=== PATIENT | female | born 1945 | race African-American/Black ===

== ENCOUNTER 2018-02-26 22:09 | Emergency (ER) | payer MEDICARE, OTHER ==
[2018-02-26 22:33] LABS: BASOPHILS % (AUTO) 0.7 %; EOSINOPHILS # (AUTO) 0.1 10^3/uL (0.0-0.7); EOSINOPHILS % (AUTO) 2.8 %; HGB - HEMOGLOBIN 11.9 g/dL (12.0-16.0); LYMPHOCYTES # (AUTO) 2.1 10^3/uL (1.5-3.5); LYMPHOCYTES % (AUTO) 39.4 %; MEAN CORPUSCULAR HEMOGLOBIN 30.8 pg (27.0-31.0); MEAN CORPUSCULAR HGB CONC 33.9 g/dL (32.0-36.0); MEAN CORPUSCULAR VOLUME 90.9 fL (81.0-99.0); MEAN PLATELET VOLUME 7.8 fL (7.9-10.8); MONOCYTES # (AUTO) 0.6 10^3/uL (0.0-1.0); MONOCYTES % (AUTO) 10.5 %; NEUTROPHILS # (AUTO) 2.5 10^3/uL (1.5-6.6); NEUTROPHILS % (AUTO) 46.6 %; PLT - PLATELET COUNT 321 10^3/uL (130-450); RED BLOOD COUNT 3.88 10^6/uL (4.20-5.40); RED CELL DISTRIBUTION WIDTH 13.4 % (12.0-15.0); WHITE BLOOD COUNT 5.4 x10^3/uL (4.8-10.8)
[2018-02-26 22:49] LABS: ALBUMIN 3.9 g/dL (3.2-5.5); BILIRUBIN,TOTAL 0.9 mg/dL (0.2-1.0); CALCIUM 9.3 mg/dL (8.5-10.3); CREATININE 0.9 mg/dL (0.4-1.0); TOTAL PROTEIN 7.7 g/dL (6.7-8.2)
--- NOTE | 2018-02-26 22:58 | ED Physician Documentation ---
PD HPI CHEST PAIN - Stated complaint Stated Complaint: CP/BLURRY VISION,L ARM TINGLING - Chief complaint Chief Complaint: Cardiac - History obtained from History obtained from: Patient, Family - History of Present Illness Timing - onset: How many hours ago (2) Timing - onset during: Rest Timing - details: Abrupt onset, Intermittant Quality: Pressure Location: Left chest Radiation: Left upper extremity Associated symptoms: No: Shortness of air, Diaphoresis, Nausea Similar symptoms before: Has not had sx before Recently seen: Not recently seen - Additional information Additional information: patient is a 72 year old female with a history of diabetes and htn who is presenting to the emergency department for chest pain and numbness and tingling down her left arm. patient states that her symptoms started this evening when she went to go to bed. 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 Patient states that she also has worsening vision. patient states that it feels like her eyes are dry and vision is a bit blurry. patient states that she always has floaters and poor vision but her symptoms are worse than usual. patient denies any exertional component to her chest pain and states that she walks every day without difficulty. Review of Systems Constitutional: denies: Fever, Chills Eyes: reports: Decreased vision. denies: Photophobia Nose: denies: Rhinorrhea / runny nose, Congestion Throat: denies: Sore throat Cardiac: reports: Chest pain / pressure. denies: Palpitations, Pedal edema, Calf pain Respiratory: denies: Dyspnea, Cough GI: denies: Nausea, Vomiting Musculoskeletal: reports: Back pain, Extremity pain Neurologic: reports: Numbness. 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 Psych: None Musculoskeletal: Osteoarthritis - Past Surgical History Past Surgical History: Yes Ortho: Knee replacement - Allergies Allergies/Adverse Reactions: Allergies Allergy/AdvReac Type Severity Reaction Status Date / Time No Known Drug Allergies Allergy Verified 02/26/18 22:22 - Social History Does the pt smoke?: No Smoking Status: Never smoker Does the pt drink ETOH?: Yes Does the pt have substance abuse?: Yes Substance Use and Type: Marijuana - Immunizations Immunizations are current?: No Immunizations: TDAP >10years/unknown - POLST Patient has POLST: No PD ED PE NORMAL - Vitals Vital signs reviewed: Yes - General General: Alert and oriented X 3, No acute distress, Well developed/nourished - HEENT HEENT: Atraumatic, PERRL, Moist mucous membranes - Neck Neck: No bony TTP, No JVD - Cardiac Cardiac: RRR, No murmur - Respiratory Respiratory: No respiratory distress, Clear bilaterally - Abdomen Abdomen: Soft, Non tender, Non distended - Derm Derm: Normal color, Warm and dry, No rash - Extremities Extremities: No deformity - Neuro Neuro: Alert and oriented X 3, No motor deficit, Normal speech Eye Opening: Spontaneous Motor: Obeys Commands Verbal: Oriented GCS Score: 15 PD ED PE EXPANDED - Neck Neck: Soft tissue TTP (tenderness to palpation of left paraspinal muscles and trapezious muscles) Results - Vitals Vitals: Vital Signs - 24 hr 02/26/18 02/26/18 02/26/18 22:16 22:39 23:45 Temperature 36.4 C L Heart Rate 71 63 66 Respiratory 16 17 18 Rate Blood Pressure 137/68 H 122/61 113/80 Blood Pressure 128/59 L [Left] Blood Pressure 137/68 H [Right] O2 Saturation 98 98 97 02/27/18 00:56 Temperature Heart Rate 62 Respiratory 19 Rate Blood Pressure 113/70 Blood Pressure [Left] Blood Pressure [Right] O2 Saturation 96 Oxygen O2 Source Room air - EKG (time done) 0106 Rate: Rate (enter#) (64) Rhythm: NSR Gorm[place]: Normal Intervals: Normal MI QRS: Normal Ischemia: Normal ST segments Compare to prior EKG: Unchanged from prior EKG - Labs Labs: Laboratory Tests 02/26/18 02/26/18 02/26/18 22:30 22:30 22:30 WBC 5.4 RBC 3.88 L Hgb 11.9 L Hct 35.2 L MCV 90.9 MCH 30.8 MCHC 33.9 RDW 13.4 Plt Count 321 MPV 7.8 L Neut # (Auto) 2.5 Lymph # (Auto) 2.1 Daniels # (Auto) 0.6 Eos # (Auto) 0.1 Baso # (Auto) 0.0 Absolute Nucleated RBC 0.00 Nucleated RBC % 0.0 Sodium 135 Potassium 3.6 Chloride 103 Carbon Dioxide 24 Anion Gap 8.0 BUN 23 H Creatinine 0.9 Estimated GFR (MDRD) 75 L Glucose 160 H Calcium 9.3 Total Bilirubin 0.9 AST 23 ALT 16 Alkaline Phosphatase 117 Troponin I < 0.04 Total Protein 7.7 Albumin 3.9 Globulin 3.8 Albumin/Globulin Ratio 1.0 Lipase 62 H 02/27/18 01:10 WBC RBC Hgb Hct MCV MCH MCHC RDW Plt Count MPV Neut # (Auto) Lymph # (Auto) Daniels # (Auto) Eos # (Auto) Baso # (Auto) Absolute Nucleated RBC Nucleated RBC % Sodium Potassium Chloride Carbon Dioxide Anion Gap BUN Creatinine Estimated GFR (MDRD) Glucose Calcium Total Bilirubin AST ALT Alkaline Phosphatase Troponin I < 0.04 Total Protein Albumin Globulin Albumin/Globulin Ratio Lipase - Rads (name of study) chest x-ray Radiology: Final report received (no acute abnormality) PD MEDICAL DECISION MAKING - ED course Complexity details: reviewed old records, reviewed results, re-evaluated patient , considered differential, d/w patient, d/w family ED course: patient was seen and examined at bedside. ekg was performed and was normal sinus. patient was well appearing in no distress. iv access was gained and labs were drawn. original troponin was negative. patient was observed in the emergency department for three hours with no chest pain. patient had some tingling in her left hand that were more likely to radiculopathy and not cardiac in nature. patient's blurry vision was not suspicious for rentinal artery or vein occlusion or a high pressure state. Patient's repeat troponin and ekg were within normal limits. Patient had a heart score of three. Patient required no further inpatient work up at this time and was stable for discharge with outpatient follow up. - Sepsis Event Vital Signs: Vital Signs - 24 hr 02/26/18 02/26/18 02/26/18 22:16 22:39 23:45 Temperature 36.4 C L Heart Rate 71 63 66 Respiratory 16 17 18 Rate Blood Pressure 137/68 H 122/61 113/80 Blood Pressure 128/59 L [Left] Blood Pressure 137/68 H [Right] O2 Saturation 98 98 97 02/27/18 00:56 Temperature Heart Rate 62 Respiratory 19 Rate Blood Pressure 113/70 Blood Pressure [Left] Blood Pressure [Right] O2 Saturation 96 Oxygen O2 Source Room air Departure - Departure Disposition: 01 Home, Self Care Clinical Impression: Atypical chest pain Condition: Good Instructions: ED Chest Pain Atypical Unkn Cause Follow-Up: Heather Rick MD [Primary Care Provider] - Within 3 Days Comments: Your diagnostics today were within normal limits. there were no significant abnormalities on you ekg, chest x-ray or blood work. This indicates that it is less likely cardiac in nature but this is only a snapshot in time. It is important that you follow up with your doctor for re-evaluation and stress test and echocardiogram. You should also move up your appointment with your eye doctor. You should return for new, worsening or uncontrollable symptoms.
--- NOTE | 2018-02-26 23:39 | XRAY Report ---
Reason: chest pain Procedure Date: 02/26/2018 Accession Number: [id number] / [id number] Procedure: XR - Chest 1 View X-Ray CPT Code: 15902 FULL RESULT: EXAM: CHEST RADIOGRAPHY EXAM DATE: 02/26/2018 11:18 PM. CLINICAL HISTORY: Chest pain COMPARISON: None. TECHNIQUE: 1 view. FINDINGS: Lungs/Pleura: No focal opacities evident. No pleural effusion. No pneumothorax. Mediastinum: Within exam limitations, the cardiomediastinal contour is normal. Other: None. IMPRESSION: Normal single view chest. RADIA
[2018-02-27 02:02] VITALS: BP 118/54
== END 2018-02-27 02:10 | disposition home or self-care (01) ==
LOC: ED 22:09
DX: I10 Essential (primary) hypertension (principal); R07.89 Other chest pain; R20.0 Anesthesia of skin; H53.8 Other visual disturbances
CPT/HCPCS: 36415; 71045; 80053; 83690; 84484; 85025; 93005; 99284

== ENCOUNTER 2021-03-06 15:38 | Emergency (ER) | payer MEDICARE ==
[2021-03-06 15:50] VITALS: BP 148/54
[2021-03-06] MEDS ORDERED: TETANUS/DIPHTHERIA/PERTUSSIS 0.5 ML SYRINGE IM ONE (16:05)
--- NOTE | 2021-03-06 16:29 | ED Physician Documentation ---
History of Present Illness - Stated complaint Stated Complaint: FALL,HEAD LAC - Chief complaint Chief Complaint: Laceration - History obtained from History obtained from: Patient - History of Present Illness Timing: Today Pain level max: 0 Pain level now: 0 - Additonal information Additional information: Patient is a 75-year-old female who presents to the emergency department after a ground-level fall while hiking today, she tripped over a tree root and hit the ground. Causing a laceration to the forehead. No pain. No loss of consciousness. No head, neck, back pain. No vomiting. Does not take any blood thinners. No visual changes. Nothing makes it better or worse. Unknown last tetanus. 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 Psych: None Musculoskeletal: Osteoarthritis - Past Surgical History Past Surgical History: Yes Ortho: Knee replacement - Allergies Allergies/Adverse Reactions: Allergies Allergy/AdvReac Type Severity Reaction Status Date / Time No Known Drug Allergies Allergy Verified 03/06/21 15:50 - Social History Does the pt smoke?: No Smoking Status: Never smoker Does the pt drink ETOH?: Yes Does the pt have substance abuse?: Yes - Immunizations Immunizations are current?: No Immunizations: TDAP >10years/unknown - POLST Patient has POLST: No PD ED PE NORMAL - Vitals Vital signs reviewed: Yes - General General: Alert and oriented X 3, No acute distress, Well developed/nourished - HEENT HEENT: PERRL, EOMI, Ears normal, Moist mucous membranes, Pharynx benign, Other (1 cm vertical laceration near the right eyebrow. Superficial. Not bleeding. 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, No motor deficit, No sensory deficit, Normal speech Eye Opening: Spontaneous Motor: Obeys Commands Verbal: Oriented GCS Score: 15 - Psych Psych: Normal mood, Normal affect Results - Vitals Vitals: Vital Signs - 24 hr 03/06/21 15:44 Temperature 36.3 C L Heart Rate 79 Respiratory 15 Rate Blood Pressure 148/54 H O2 Saturation 99 Oxygen O2 Source Room air Procedures - Laceration (location) forehead Length in cm: 1 Wound type: Linear, Superficial, Clean Neurovascular status: Sensory intact, Motor intact, Vascular intact Wound preparation: Irrigated copiously NS Skin layer closure: Dermabond Other: Patient tolerated well, No complications, Neurovascular intact, Tetanus booster given PD MEDICAL DECISION MAKING - ED course Complexity details: considered differential, d/w patient ED course: No evidence of intracranial hemorrhage or skull fracture. Dermabond applied to the wound after cleaning. Tolerated well. No bleeding. Warnings of infection and instructions on wound care given at bedside. Also counseled on how to minimize scarring. Tdap given patient counseled regarding signs and symptoms for which I believe and urgent re-evaluation would be necessary. Patient with good understanding of and agreement to plan and is comfortable going home at this time This document was made in part using voice recognition software. While efforts are made to proofread this document, sound alike and grammatical errors may occur. Departure - Departure Disposition: 01 Home, Self Care Clinical Impression: Forehead laceration Qualifiers: Encounter type: initial encounter Qualified Code(s): S01.81XA - Laceration without foreign body of other part of head, initial encounter Condition: Good Instructions: ED Laceration Facial Skin Glue Follow-Up: Heather Rick MD [Primary Care Provider] - As Needed Comments: Return if you have worsening headaches, nausea, vomiting, redness, swelling or drainage from the wound. Keep the wound clean. The glue will dissolve on its own. Do not apply ointment as this may dissolve the glue. You were given a Tdap shot today.
== END 2021-03-06 16:41 | disposition home or self-care (01) ==
LOC: ED 15:38
DX: S01.81XA Laceration without foreign body of other part of head, initial encounter (principal); W18.30XA Fall on same level, unspecified, initial encounter; Y93.01 Activity, walking, marching and hiking; I10 Essential (primary) hypertension; Z23 Encounter for immunization
CPT/HCPCS: 12011; 90471; 99282; 99283

== ENCOUNTER 2022-06-24 11:57 | Emergency (ER) | payer MEDICARE ==
[2022-06-24] MEDS ORDERED: ASPIRIN CHEW 81 MG TABLET PO STA (12:12)
[2022-06-24] MEDS ORDERED: NITROGLYCERIN SL 0.4 MG TABLET SL STA (12:13)
--- NOTE | 2022-06-24 12:13 | ED Physician Documentation ---
History of Present Illness - Stated complaint Stated Complaint: HIGH BP,CHEST PX - Additonal information Additional information: 77-year-old female presents to the emergency department for evaluation of chest discomfort and elevated blood pressure. About 1 hour prior to arrival the patient began to have some chest discomfort. It radiated into her lower abdomen and back en route here. She did check her blood pressures at home and found that they were about 190/100. She denies that the chest pain is exertional. She had no nausea or diaphoresis. She has no shortness of air. She does have a history of hypertension on lisinopril. Also has a history of thyroid disorder on levothyroxine. No tobacco use but is a frequent cannabis consumer. Rare alcohol. She denies any history of myocardial infarction. She does not smoke tobacco but she is a daily cannabis user. She reports she is never been seen by divorce lawyer. When she lived in [facility] she had a similar episode of chest discomfort and was evaluated at the hospital and found to have the thyroid disorder. Review of Systems Constitutional: denies: Fever, Chills Nose: reports: Reviewed and negative Throat: reports: Reviewed and negative Cardiac: reports: Chest pain / pressure. 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 Psych: None Musculoskeletal: Osteoarthritis - Past Surgical History Past Surgical History: Yes Ortho: Knee replacement - Allergies Allergies/Adverse Reactions: Allergies Allergy/AdvReac Type Severity Reaction Status Date / Time No Known Drug Allergies Allergy Verified 03/06/21 15:50 - Social History Does the pt smoke?: No Smoking Status: Never smoker Does the pt drink ETOH?: Yes Does the pt have substance abuse?: Yes - Immunizations Immunizations are current?: No Immunizations: TDAP >10years/unknown - POLST Patient has POLST: No PD ED PE NORMAL - General General: Alert and oriented X 3, No acute distress, Well developed/nourished - HEENT HEENT: PERRL - Neck Neck: Supple, no meningeal sign, No adenopathy - Cardiac Cardiac: RRR, No murmur - Respiratory Respiratory: No respiratory distress, Clear bilaterally - Abdomen Abdomen: Normal bowel sounds, Soft, Non tender - Back Back: No CVA TTP, No spinal TTP - Derm Derm: Normal color, Warm and dry - Extremities Extremities: No deformity, No tenderness to palpate, Normal ROM s pain - Neuro Neuro: Alert and oriented 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 No: Prolonged QT QRS: Poor R wave progression Ischemia: Other (Mild ST elevation noted in lead II. Nonspecific in 3 and aVF) Compare to prior EKG: Old EKG unavailable Computer interpretation: Agree with computer - Labs Labs: Laboratory Tests 06/24/22 06/24/22 06/24/22 13:00 13:00 13:00 WBC 6.6 RBC 3.98 L Hgb 12.5 Hct 37.8 MCV 95.0 MCH 31.4 H MCHC 33.1 RDW 12.7 Plt Count 344 MPV 9.9 Neut # (Auto) 3.8 Lymph # (Auto) 2.1 Duchesne # (Auto) 0.4 Eos # (Auto) 0.1 Baso # (Auto) 0.0 Absolute Nucleated RBC 0.00 Nucleated RBC % 0.0 PT 11.4 INR 1.0 Sodium 137 Potassium 4.3 Chloride 102 Carbon Dioxide 26 Anion Gap 9.0 BUN 19 Creatinine 1.0 Estimated GFR (MDRD) 66 L Glucose 180 H Calcium 9.7 Total Bilirubin 1.1 H AST 28 ALT 20 Alkaline Phosphatase 91 Troponin I High Sens B-Natriuretic Peptide Total Protein 8.4 H Albumin 4.4 Globulin 4.0 Albumin/Globulin Ratio 1.1 Lipase 53 H TSH Thyroxine (T4) 06/24/22 06/24/22 06/24/22 13:00 13:00 13:00 WBC RBC Hgb Hct MCV MCH MCHC RDW Plt Count MPV Neut # (Auto) Lymph # (Auto) Duc[place]ne # (Auto) Eos # (Auto) Baso # (Auto) Absolute Nucleated RBC Nucleated RBC % PT INR Sodium Potassium Chloride Carbon Dioxide Anion Gap BUN Creatinine Estimated GFR (MDRD) Glucose Calcium Total Bilirubin AST ALT Alkaline Phosphatase Troponin I High Sens 3.9 B-Natriuretic Peptide 103 H Total Protein Albumin Globulin Albumin/Globulin Ratio Lipase TSH 0.35 Thyroxine (T4) 10.21 06/24/22 15:14 WBC RBC Hgb Hct MCV MCH MCHC RDW Plt Count MPV Neut # (Auto) Lymph # (Auto) [place]ne # (Auto) Eos # (Auto) Baso # (Auto) Absolute Nucleated RBC Nucleated RBC % PT INR Sodium Potassium Chloride Carbon Dioxide Anion Gap BUN Creatinine Estimated GFR (MDRD) Glucose Calcium Total Bilirubin AST ALT Alkaline Phosphatase Troponin I High Sens 3.8 B-Natriuretic Peptide Total Protein Albumin Globulin Albumin/Globulin Ratio Lipase TSH Thyroxine (T4) - Rads (name of study) cxr Radiology: Final report received (Unremarkable portable chest for age) CTA chest Radiology: Final report received (Negative for aortic dissection or aneurysm. No findings of pulmonary embolism are seen. Clear lungs. Degenerative changes at T10/T11. Visualized upper abdominal solid organs appear normal in the early arterial phase of enhancement) PD Medical Decision Making - ED course Complexity details: reviewed old records, reviewed results, re-evaluated patient, considered differential, d/w patient ED course: 77-year-old female presents emergency department for evaluation of chest discomfort that began about an hour prior to arrival. She describes it as sharp. She states when she was driving in the car it radiated down to her lower abdomen. She had no fevers nausea or vomiting. No jaw pain. She does have a history of hypertension but no history known to patient for heart attacks. 1258: I have reevaluated the patient. She has received the nitroglycerin. She thinks it may have improved her chest pain but she states that most of the pain is now sitting squarely in her back. Given the hypertension and age we will complete a CT angio to rule out an aortic dissection We did obtain a CBC and electrolytes that showed no worrisome anemia or leukocy tosis. Her electrolytes were normal for age. Chest x-ray showed no findings of pneumonia, pleural effusion or heart failure. EKG was nonischemic and troponin x2 was negative. The angiogram of her chest showed no findings suggest aortic aneurysm or dissection. No secondary findings suggest a pericardial effusion or pulmonary embolism. Patient has a HEART score of 2 indicating low risk for MACE. She is discharged home in stable condition with recommendation for close follow-up with her primary care provider in order to obtain an outpatient stress test or echocardiogram. Emergent worrisome return precautions discussed Departure - Departure Disposition: Home, Self Care Clinical Impression: Chest discomfort, History of hypertension Abdominal pain Qualifiers: Abdominal location: unspecified location Qualified Code(s): R10.9 - Unspecified abdominal pain Condition: Stable Record reviewed to determine appropriate education?: Yes Comments: You came to the emergency department today because you developed some chest discomfort that then radiated to your lower abdomen and back. You do have a history of hypertension but denies any history of heart attacks. Today in the emergency department an EKG was done and it does not show signs of a heart attack. Your chest x-ray showed no signs of pneumonia, pleural effusion or heart failure. We did obtain a CBC that showed no worrisome anemia. Your electrolytes including kidney and liver function were essentially normal for age. Your thyroid testing today including your T4 was normal In order to check for the presence of a heart attack we checked a lab called a troponin twice and neither value was elevated. Because some of the pain had settled in your back this did make us concerned for a condition called aortic dissection. We did a CT of your chest that showed no worrisome findings such as aneurysm, aortic dissection, pulmonary embolism or heart failure. At this time however because of your age, ethnicity and history of hypertension it is critical that you follow-up closely with your primary care provider. You should be referred for a stress test and/or an echocardiogram to ensure that your heart health is safe. You can continue to take your usual medications of levothyroxine, aspirin and lisinopril. If at any point you develop sudden severe chest pain, have fainting episodes, uncontrolled vomiting or severe shortness of breath you should return immediately to the ER for second evaluation
--- NOTE | 2022-06-24 12:35 | XRAY Report ---
PROCEDURE: Chest 1 View X-Ray INDICATIONS: Chest Pain TECHNIQUE: One view of the chest was acquired. COMPARISON: 02/26/2018 FINDINGS: Surgical changes and devices: None. Lungs and pleura: No pleural effusions or pneumothorax. Lungs are clear. Mediastinum: Mediastinal contours appear normal. Heart size is normal. Bones and chest wall: No suspicious bony lesions. Age-appropriate degenerative changes are seen. O verlying soft tissues appear unremarkable. IMPRESSION: Unremarkable portable chest for age. Reviewed by: Jadon Rolon MD on 06/24/2022 11:33 AM [facility] Approved by: Jadon Rolon MD on 06/24/2022 11:33 AM [facility] Station ID: [id number]
[2022-06-24 13:05] LABS: BASOPHILS % (AUTO) 0.6 %; EOSINOPHILS # (AUTO) 0.1 10^3/uL (0.0-0.7); EOSINOPHILS % (AUTO) 1.4 %; HCT - HEMATOCRIT 37.8 % (37.0-47.0); HGB - HEMOGLOBIN 12.5 g/dL (12.0-16.0); LYMPHOCYTES # (AUTO) 2.1 10^3/uL (1.5-3.5); LYMPHOCYTES % (AUTO) 32.7 %; MEAN CORPUSCULAR HEMOGLOBIN 31.4 pg (27.0-31.0); MEAN CORPUSCULAR HGB CONC 33.1 g/dL (32.0-36.0); MEAN PLATELET VOLUME 9.9 fL (7.9-10.8); MONOCYTES # (AUTO) 0.4 10^3/uL (0.0-1.0); MONOCYTES % (AUTO) 6.6 %; NEUTROPHILS # (AUTO) 3.8 10^3/uL (1.5-6.6); NEUTROPHILS % (AUTO) 58.4 %; PLT - PLATELET COUNT 344 10^3/uL (130-450); RED BLOOD COUNT 3.98 10^6/uL (4.20-5.40); RED CELL DISTRIBUTION WIDTH 12.7 % (12.0-15.0); WHITE BLOOD COUNT 6.6 x10^3/uL (4.8-10.8)
[2022-06-24 13:11] LABS: PT - PROTHROMBIN TIME 11.4 secs (9.9-12.6)
[2022-06-24 13:28] LABS: ALBUMIN 4.4 g/dL (3.2-5.5); ALBUMIN/GLOBULIN RATIO 1.1 (1.0-2.2); BILIRUBIN,TOTAL 1.1 mg/dL (0.2-1.0); CALCIUM 9.7 mg/dL (8.5-10.3); POTASSIUM 4.3 mmol/L (3.5-5.0); TOTAL PROTEIN 8.4 g/dL (6.7-8.2)
[2022-06-24 13:36] LABS: T4 (THYROXINE) 10.21 ug/dL (6.09-12.23)
[2022-06-24 13:40] LABS: THYROID STIMULATING HORMONE 0.35 uIU/mL (0.34-5.60)
[2022-06-24] MEDS ORDERED: iohexoL-300 100 ML VIAL ONE (13:59)
[2022-06-24] MEDS ORDERED: iohexoL-300 100 ML VIAL IVP ONE (14:25)
--- NOTE | 2022-06-24 14:34 | CT Report ---
PROCEDURE: ANGIO CHEST W/WO INDICATIONS: chest pain with radiation to back; aortic study CONTRAST: 80ml omni 300 TECHNIQUE: After the administration of intravenous contrast, 2 mm axial images were acquired from the pulmonary apices to the posterior costophrenic angles during the arterial phase. In addition, 1 mm lung kernel and 5 mm soft tissue kernel reconstructions were performed. 3-dimensional coronal oblique maximum int ensity projection (MIP) reformats, 8 mm axial MIP, and 5 mm coronal and sagittal MPR reformats were t hen performed through the thorax. For radiation dose reduction, the following was used: automated exp osure control, adjustment of mA and/or kV according to patient size. COMPARISON: Relation is made with the accompanying chest radiograph, 06/24/2022. FINDINGS: Image quality: Excellent. Aorta: The aorta demonstrates normal caliber, without findings of dissection or aneurysm. Lungs and p leura: Lungs are clear. No pleural effusions or pneumothorax. Central and peripheral airways are p atent. Mediastinum: The pulmonary arteries are well-opacified and demonstrate no pulmonary embolism. Heart size is normal, without pericardial effusion. No mediastinal or hilar adenopathy. Thoracic aorta is normal in caliber and enhancement. Esophagus is normal in caliber, without hiatal hernia. Bones and chest wall: No suspicious bony lesions. Ribs and thoracic spine appear intact throughout. Degenerative changes are seen throughout, which are worst at the T10-T11 level. There is accentuated thoracic kyphosis. No axillary or supraclavicular adenopathy. The thyroid is not well seen. Abdomen: Visualized upper abdominal solid organs appear normal in the early arterial phase of enhanc ement. IMPRESSION: Negative for aortic dissection or aneurysm. No findings of pulmonary embolism are seen. Clear lungs. Focal T10-T11 level degenerative change. Reviewed by: Jadon Rolon MD on 06/24/2022 1:33 PM [facility] Approved by: Jadon Rolon MD on 06/24/2022 1:33 PM [facility] Station ID: [id number]
[2022-06-24 15:46] VITALS: BP 145/68
== END 2022-06-24 16:14 | disposition home or self-care (01) ==
LOC: ED 11:57
DX: R07.89 Other chest pain (principal); I10 Essential (primary) hypertension; R10.9 Unspecified abdominal pain
CPT/HCPCS: 36415; 71045; 71275; 80053; 83690; 83880; 84436; 84443; 84484; 85025; 85610; 93005; 99284; A9270; Q9967